=== PATIENT | female | born 1990 | race Caucasian/White ===

== ENCOUNTER 2016-10-01 19:35 | Emergency (ER) | payer OTHER ==
[~2016-10-01] VITALS: Ht 165.1 cm; Wt 81.6 kg
[2016-10-01] MEDS ORDERED: ONDANSETRON PF 4 MG/2 ML VIAL. ONE (20:16)
[2016-10-01] MEDS ORDERED: ONDANSETRON PF 4 MG/2 ML VIAL. IV ONE (20:30)
[2016-10-01] MEDS ORDERED: MORPHINE SULFATE 4 MG/ML DISP.SYRIN. IV ONE (20:30)
[2016-10-01] MEDS ORDERED: IV NORMAL SALINE 1000ML BAG 1,000 ML IV SCH (20:30)
[2016-10-01 20:35] LABS: BASO # 0.1 x10^3/uL (0.0-0.2); BASO % 1 % (0-3); EOS % 2 % (0-3); HEMATOCRIT 39.1 % (36.0-47.0); HEMOGLOBIN 13.5 g/dL (12.0-15.5); LYMPH % 24 % (24-48); MEAN CORPUSCULAR HEMOGLOBIN 31 pg (25-35); MEAN CORPUSCULAR HGB CONC 35 g/dL (31-37); MEAN CORPUSCULAR VOLUME 89 fL (79-100); MONO % 10 % (0-9); NEUT % 64 % (31-73); PLATELET COUNT 368 x10^3/uL (140-400); RED BLOOD COUNT 4.38 x10^6/uL (3.50-5.40); RED CELL DISTRIBUTION WIDTH 12.9 % (11.5-14.5); WHITE BLOOD COUNT 12.4 x10^3/uL (4.0-11.0)
[2016-10-01 20:36] LABS: BILIRUBIN,URINE NEGATIVE (NEG); GLUCOSE,URINE NEGATIVE (NEG); NITRITE,URINE NEGATIVE (NEG); PH,URINE 7.5; PROTEIN,URINE NEGATIVE (NEG-TRACE); UROBILINOGEN,URINE 0.2 mg/dL (0.2 mg/dL)
[2016-10-01 20:45] LABS: CALCIUM 9.2 mg/dL (8.5-10.1); CREATININE 0.9 mg/dL (0.6-1.0); GFR 75.1; POTASSIUM 3.9 mmol/L (3.5-5.1)
[2016-10-01 20:45] LABS: BACTERIA,URINE 0 /HPF (0-FEW); RBC,URINE 0 /HPF (0-2); WBC,URINE OCC /HPF (0-4)
[2016-10-01 20:46] LABS: SQUAMOUS EPITHELIAL CELL,UR FEW /LPF
[2016-10-01 20:51] LABS: ALBUMIN 4.2 g/dL (3.4-5.0); ALBUMIN/GLOBULIN RATIO 1.1 (1.0-1.7); TOTAL BILIRUBIN 0.3 mg/dL (0.2-1.0)
[2016-10-01] MEDS ORDERED: IOHEXOL 300 MG/ML 75 ML VIAL IV ONE (21:15)
[2016-10-01] MEDS ORDERED: IOHEXOL 240 MG/ML 50ML VIAL. PO ONE (21:15)
[2016-10-01] MEDS ORDERED: CONTRAST GIVEN MC PRN (21:30)
--- NOTE | 2016-10-01 22:19 | RAD ---
PROCEDURE CT abdomen and pelvis with contrast HISTORY RLQ PAIN, 75 ML OMNI 300, 30ML OMNI [address] scan of the abdomen and pelvis was done using 75 mL of Omnipaque 300 contrast. Sagittal and coronal images were reconstructed. One or more of the following individualized dose reduction techniques were utilized for this examination: 1. Automated exposure control; 2. Adjustment of the mA and/or kV according to patient size; 3. Use of iterative reconstruction technique. COMPARISON None FINDINGS The lung bases are clear. Liver and spleen are unremarkable. There is no calcified gallstone or gallbladder wall thickening. Adrenal glands and pancreas are unremarkable. There is mild dilatation the renal collecting systems without a ureteral calculus. The bladder is very distended. Uterus and left ovary are normal. There is a 3.6 centimeter cyst or cystic mass in the right ovary. Appendix is normal. There is no adenopathy or ascites. There is no bowel obstruction. IMPRESSION Right ovarian cyst or cystic mass Distended bladder with mild bilateral hydronephrosis Normal appendix No other acute finding in the abdomen or pelvis Electronically signed by: Godfrey Carey MD (Oct 01, 2016 22:18:12)
[2016-10-01] MEDS ORDERED: HYDROmorphone 2 MG/ML VIAL IV ONE (22:45)
[2016-10-01] MEDS ORDERED: IBUPROFEN 800 MG TABLET. PO ONE (22:45)
--- NOTE | 2016-10-01 23:43 | ACF ---
Admission Forms Criteria ABDOMINAL PAIN Clinical Indications for Admission to Inpatient Care (Place 'X' for any and all applicable criteria): Admission is indicated for ANY ONE of the following(1)(2)(3)(4)(5): [ ]I. Inpatient admission required rather than observation care (Also use Abdominal Pain: Observation Care, as appropriate) because of ANY ONE of the following: [ ]a) Severe pain requiring acute inpatient management [ ]b) Identification of etiology/finding that requires inpatient care (eg, aortic dissection, free air) [ ]c) Absent bowel sounds with complete ileus(6) [ ]d) Suspected toxic megacolon [ ]e) Severe electrolyte abnormalities requiring inpatient care [ ]f) High fever or infection requiring inpatient admission as indicated by ANY ONE of following(7)(8): [ ] i) Appropriate outpatient or observational care antimicrobial treatment unavailable, not effective, or not feasible [ ] ii) Documented bacteremia [ ] iii) Temperature > 104.9 degrees F (oral) [ ] iv) T >103.1 F (oral) or < 96.8 F(rectal) that does not respond to all emergency treatment measures [ ]g) Signs of intestinal obstruction [B] [ ]h) Hemodynamic instability [ ]i) IV fluid to replace significant ongoing losses (greater than 3 L/m2 per day) (12)(13) [ ]j) Percutaneous or open drainage (eg, abscess, biliary tract ) procedures [ ]k) Parenteral nutrition regimen that must be implemented on inpatient basis [ ]l) Other condition,treatment or monitoring requiring inpatient admission. [ ]II. Peritoneal signs present [ ]III. Surgery needed that cannot be performed on an ambulatory basis. [ ]IV. Evaluation requires patient to not eat or drink for extended period ( eg, more than 24 hours). [ ]V. Contraindications and/or Inappropriate clinical situations for Observational Care in patients with abdominal pain, when ANY ONE of the following is required: [ ]a) Thorough evaluation is required to prevent catastrophic events due to delays in diagnosing (e.g.Mesenteric ischemia) 1,3 [ ]b) Patient with severe pathology or with chronic symptoms unlikely to improve in the ED stay (3) [ ]. General contraindications and/or Inappropriate clinical situations for Observational Care in patients with abdominal pain, when ANY ONE of the following is required: [ ]a) Prediction of prolongation of LOS based on ANY ONE of the following may be considered as a contraindication for observational care 2, 3, 4, 5, 6, 7, 8, 9, 10, 11 [ ]i) Age > 65 yrs. [ ]ii) Patient arriving by ambulance [ ]iii) Patient with high acuity [ ]iv) Patient requiring vital sign monitoring [ ]v) Patient on IV medication [ ]b) Systolic blood pressures 180mmHg 3,12 [ ]c) Patient with altered mental status including delirium and other alteration of consciousness, (3) [ ]d) Patient whose discharge disposition will be to a shelter home or rehabilitation home should not be managed in Emergency Department Observation Unit. CMS rule requires 3 days hospital stay before such placement.3,13 [ ]e) Patient with failure to thrive due to broad array of etiologies 3,16,17 [ ]f) Inability to ambulate 3,14 Extended stay beyond goal length of stay may be needed for(2)(3): [ ]a) Persistent abdominal pain with suspected intra-abdominal process [ ]b) Diagnosed condition requiring continued stay (e.g., pancreatitis, complicated diverticulitis) [ ]c) Surgery (e.g., colectomy) The original [facility] content created by [employer] has been revised. The portions of the content which have been revised are identified through the use of italic text or in bold, and [facility] has neither reviewed nor approved the modified material.All other unmodified content is copyright [employer]. Please see references footnoted in the original [facility] edition 2016 ROSSY MORENO Oct 01, 2016 23:43
[2016-10-02] VITALS: BP 111/63
--- NOTE | 2016-10-02 00:25 | RAD ---
PROCEDURE Pelvic ultrasound 10/01/2016. HISTORY Pain. Right ovarian abnormality on CT. TECHNIQUE COMPARISON FINDINGS The uterus is normal in size and shape and has a normal-appearing endometrium with thickness of 5 millimeters. The left ovary appears normal and has internal blood flow. The right ovary contains a cystic area with internal echoes probably representing a hemorrhagic cyst. It measures about 3.2 by 3.3 x 2.9 centimeters. There is some blood flow in the periphery of the ovary. No separate adnexal mass or free fluid is seen. IMPRESSION Probable hemorrhagic right ovarian cyst. No evidence of torsion or other acute abnormality. Electronically signed by: Eric Lyle (Oct 02, 2016 00:23:39)
[2016-10-02] MEDS ORDERED: ACET-704 PO (00:36)
[2016-10-02] MEDS ORDERED: IBUP-1060 PO (00:36)
--- NOTE | 2016-10-02 00:36 | PHYS DOC ---
Past Medical History Past Medical History: Anxiety, GERD Past Surgical History: Alcohol Use: None Drug Use: None Adult General Chief Complaint Chief Complaint: ABDOMINAL PAIN HPI HPI Patient is a 26 year old female who presents with right lower quadrant pain. Patient reports about an hour prior to arrival she had acute onset of severe "tearing" right lower quadrant pain. Pain is accompanied by nausea and vomiting. No clear inciting or mitigating factors. No prior similar episodes. No urinary complaints. No vaginal bleeding or discharge. Review of Systems Review of Systems Constitutional: Denies fever or chills Eyes: Denies change in visual acuity or eye pain HENT: Denies nasal congestion or sore throat Respiratory: Denies cough or shortness of breath Cardiovascular: Denies chest pain GI: RLQ abdominal pain, nausea, vomiting. Denies bloody stools or diarrhea : Denies dysuria, hematuria, vaginal bleeding, discharge Musculoskeletal: Denies back pain or joint pain Integument: Denies rash or skin lesions Neurologic: Denies headache, focal weakness or sensory changes Current Medications Current Medications Current Medications Medications (Trade) Dose Ordered Sig/Eduardo Start Time Stop Time Status Last Admin Dose Admin Hydromorphone HCl (Dilaudid) 1 mg 1X ONCE 10/01/16 22:45 10/01/16 22:46 DC 10/01/16 23:07 1 MG Ibuprofen (Motrin) 800 mg 1X ONCE 10/01/16 22:45 10/01/16 22:46 DC 10/01/16 23:07 800 MG Info (Do NOT chart on this entry -- for MONITORING) 1 each PRN DAILY PRN 10/01/16 21:30 10/03/16 21:29 Iohexol (Omnipaque 240 Mg/ml) 30 ml 1X ONCE 10/01/16 21:15 10/01/16 21:16 DC 10/01/16 22:02 30 ML Iohexol (Omnipaque 300 Mg/ml) 75 ml 1X ONCE 10/01/16 21:15 10/01/16 21:16 DC 10/01/16 22:02 75 ML Morphine Sulfate 6 mg 1X ONCE 10/01/16 20:30 10/01/16 20:31 DC 10/01/16 20:43 6 MG Ondansetron HCl (Zofran) 4 mg STK-MED ONCE 4/23/17 20:16 10/01/16 20:17 DC Ondansetron HCl 4 mg 4 mg 1X ONCE 10/01/16 20:30 10/01/16 20:31 DC 10/01/16 20:19 4 MG Sodium Chloride (Iv Sodium Chloride 0.9% 1000ml Bag) 1,000 ml @ 1,000 mls/hr Q1H 10/01/16 20:30 10/01/16 21:29 DC 10/01/16 20:43 1,000 MLS/HR Allergies Allergies Allergies Coded Allergies Type Severity Reaction Last Updated Verified Penicillins Allergy Intermediate 10/01/16 Yes Sulfa (Sulfonamide Antibiotics) Allergy Intermediate 10/01/16 Yes aspirin Allergy Intermediate 10/01/16 Yes fentanyl Allergy Intermediate 10/01/16 Yes orange Allergy Intermediate 10/01/16 Yes Physical Exam Physical Exam Constitutional: Well developed, well nourished, uncomfortable, non-toxic appearance HENT: Normocephalic, atraumatic, bilateral external ears normal Eyes: EOMI, conjunctiva normal, no discharge Neck: Normal range of motion, no stridor Cardiovascular: Tachycardic, regular rhythm, no murmur Lungs & Thorax: Bilateral breath sounds clear to auscultation Abdomen: Bowel sounds normal, soft, non-distended, RLQ TTP without guarding Skin: Warm, dry, no erythema, no rash Extremities: No obvious deformity, no edema Neurologic: Alert and oriented X 3, no gross deficits noted Current Patient Data Vital Signs Vital Signs Date Time Temp Pulse Resp B/P Pulse Ox O2 Delivery O2 Flow Rate FiO2 10/01/16 20:43 20 10/01/16 20:14 98.4 117 168/117 100 Room Air 98.4 Lab Values Laboratory Tests Test 10/01/16 19:06 10/01/16 19:53 10/01/16 20:00 POC Urine HCG, Qualitative Hcg negative (Negative) White Blood Count 12.4x10^3/uL (4.0-11.0) H Red Blood Count 4.38x10^6/uL (3.50-5.40) Hemoglobin 13.5g/dL (12.0-15.5) Hematocrit 39.1% (36.0-47.0) Mean Corpuscular Volume 89fL (79-100) Mean Corpuscular Hemoglobin 31pg (25-35) Mean Corpuscular Hemoglobin Concent 35g/dL (31-37) Red Cell Distribution Width 12.9% (11.5-14.5) Platelet Count 368x10^3/uL (140-400) Neutrophils (%) (Auto) 64% (31-73) Lymphocytes (%) (Auto) 24% (24-48) Monocytes (%) (Auto) 10% (0-9) H Eosinophils (%) (Auto) 2% (0-3) Basophils (%) (Auto) 1% (0-3) Neutrophils # (Auto) 8.0x10^3uL (1.8-7.7) H Lymphocytes # (Auto) 3.0x10^3/uL (1.0-4.8) Monocytes # (Auto) 1.2x10^3/uL (0.0-1.1) H Eosinophils # (Auto) 0.2x10^3/uL (0.0-0.7) Basophils # (Auto) 0.1x10^3/uL (0.0-0.2) Sodium Level 140mmol/L (136-145) Potassium Level 3.9mmol/L (3.5-5.1) Chloride Level 102mmol/L (98-107) Carbon Dioxide Level 29mmol/L (21-32) Anion Gap 9 (6-14) Blood Urea Nitrogen 11mg/dL (7-20) Creatinine 0.9mg/dL (0.6-1.0) Estimated GFR (Cockcroft-Gault) 75.1 BUN/Creatinine Ratio 12 (6-20) Glucose Level 109mg/dL (70-99) H Calcium Level 9.2mg/dL (8.5-10.1) Total Bilirubin 0.3mg/dL (0.2-1.0) Aspartate Amino Transferase (AST) 19U/L (15-37) Alanine Aminotransferase (ALT) 18U/L (14-59) Alkaline Phosphatase 69U/L (46-116) Total Protein 8.0g/dL (6.4-8.2) Albumin 4.2g/dL (3.4-5.0) Albumin/Globulin Ratio 1.1 (1.0-1.7) Lipase 111U/L (73-393) Urine Collection Type U cath Urine Color Yellow Urine Clarity Clear Urine pH 7.5 Urine Specific [place] 1.015 Urine Protein Negativemg/dL (NEG-TRACE) Urine Glucose (UA) Negativemg/dL (NEG) Urine Ketones (Stick) Negativemg/dL (NEG) Urine Blood Negative (NEG) Urine Nitrite Negative (NEG) Urine Bilirubin Negative (NEG) Urine Urobilinogen Dipstick 0.2mg/dL (0.2 mg/dL) Urine Leukocyte Esterase Negative (NEG) Urine RBC 0/HPF (0-2) Urine WBC Occ/HPF (0-4) Urine Squamous Epithelial Cells Few/LPF Urine Transitional Epithelial Cells Occ/LPF Urine Bacteria 0/HPF (0-FEW) Urine Hyaline Casts Occasional/HPF Laboratory Tests 10/01/16 19:53 Laboratory Tests 10/01/16 19:53 EKG EKG [] Radiology/Procedures Radiology/Procedures CT A/P: IMPRESSION Right ovarian cyst or cystic mass Distended bladder with mild bilateral hydronephrosis Normal appendix No other acute finding in the abdomen or pelvis Pelvic US: IMPRESSION Probable hemorrhagic right ovarian cyst. No evidence of torsion or other acute abnormality. Course & Med Decision Making Course & Med Decision Making Pertinent Labs and Imaging studies reviewed. (See chart for details) Patient is 26-year-old female who presents with right lower quadrant pain. Will check labs, UA, CT abdomen/pelvis to evaluate. IV fluids, nausea meds, pain meds ordered for relief of symptoms. Labs notable for mild leukocytosis. CT results as above. Given degree of pain, ultrasound ordered to rule out evidence of torsion. No torsion noted. Discussed results with patient, who is feeling much more comfortable this time. Discharged with prescription for pain and nausea meds, instructions for follow-up, return precautions. Dragon Disclaimer Dragon Disclaimer This electronic medical record was generated, in whole or in part, using a voice recognition dictation system. Departure Departure Impression: Primary Impression: Ovarian cyst Disposition: 01 HOME, SELF-CARE Condition: RELEASED IN CUSTODY Referrals: NON,STAFF (PCP) JER LANDA MD Patient Instructions: Ovarian Cyst Additional Instructions: Thank you for allowing us to provide care today in the Emergency Department. Take the provided medication as directed. Use caution when taking the pain medication as it can make you drowsy. Schedule a follow up appointment with an ObGyn using the provided contact information. Return promptly to the Emergency Department if you develop any new or concerning symptoms. Scripts Ondansetron (Zofran Odt)4 Mg Tab.rapdis1 Tab SL Q8HRS PRN NAUSEA #15 TAB Prov:SHANE MARK MD 10/02/16 Acetaminophen With Codeine (Tylenol With Codeine #3 Tablet)1 Each Tablet1 Tab PO PRN Q6HRS PRN PAIN #15 TAB Prov:SHANE MARK MD 10/02/16 Ibuprofen 800 Mg [id number] Mg PO PRN Q6HRS #30 TAB Prov:SHANE MARK MD 10/02/16 SHANE MARK MD Oct 02, 2016 00:36
[2016-10-02] MEDS ORDERED: ONDA4TAB10 SL (00:45)
== END 2016-10-02 00:57 | disposition home or self-care (01) ==
LOC: ER 19:35
DX: N83.201 Unspecified ovarian cyst, right side (principal); D72.829 Elevated white blood cell count, unspecified; Z88.0 Allergy status to penicillin; K21.9 Gastro-esophageal reflux disease without esophagitis; F41.9 Anxiety disorder, unspecified; Z88.6 Allergy status to analgesic agent; Z88.2 Allergy status to sulfonamides; Z91.018 Allergy to other foods
CPT/HCPCS: 36415; 51701; 74177; 76856; 80053; 81001; 81025; 83690; 85027; 96361; 96374; 96375; 99285; J1170; J2270; J2405; J7030; Q9966; Q9967